=== PATIENT | female | born 1975 | race Caucasian/White ===

== ENCOUNTER 2016-09-30 04:15 | Emergency (ER) | payer OTHER ==
[~2016-09-30] VITALS: Ht 177.8 cm; Wt 90.9 kg
[~2016-09-30 04:15] MED LIST: ASCO1500 PO; FOLI-49 PO; GUAI120L41 PO; HYDR-906 PO; IBUP-1542 PO; OMEP40CA6 PO; PREN-21 PO; SODI75SP NASAL
[2016-09-30 04:18] VITALS: Ht 177.8 cm; Wt 90.9 kg
[2016-09-30] MEDS ORDERED: IBUPROFEN 800 MG TAB PO ONE (07:00)
--- NOTE | 2016-09-30 08:39 | RADRPT ---
PROCEDURE: XR Cervical Spine. CLINICAL INDICATION: Neck pain. Status post fall. TECHNIQUE: AP, lateral, and open-mouth odontoid views of the cervical spine were performed. The im ages were reviewed on a PACS workstation. COMPARISON: 04/22/2016 FINDINGS: The cervical spine is mildly straightened without evidence of fractures or subluxations. Vertebral body and disk heights appear within normal limits. No acute fractures or subluxations. Odontoid bas e and lateral masses are aligned. The prevertebral soft tissues are normal. No radiopaque foreign b odies are identified. IMPRESSION: 1. Unremarkable cervical spine x-rays series. RPTAT: VV .Charly Dover MD, MD Date Time Electronically viewed and signed by .Charly Dover MD, on 09/30/2016 08:39 .L/
--- NOTE | 2016-09-30 08:47 | RADRPT ---
PROCEDURE: XR Knee. CLINICAL INDICATION: Left knee pain. Status post fall. TECHNIQUE: AP, lateral, sunrise, and oblique views of the left knee are available for review. COMPARISON: None available FINDINGS: The osseous structures, articular spaces, and surrounding soft tissues of the left knee are all unre markable. No acute fracture or dislocation is seen. No radiopaque foreign body is identified. Ali gnment is anatomic. No joint effusion is seen. IMPRESSION: 1. Unremarkable left knee x-ray series. 2. No acute fracture or dislocation is seen. RPTAT: VV .Charly Dover MD, MD Date Time Electronically viewed and signed by .Charly Dover MD, MD on 09/30/2016 08:46 .L/
--- NOTE | 2016-09-30 08:50 | RADRPT ---
PROCEDURE: XR Lumbar Spine. CLINICAL INDICATION: Low back pain. Status post fall TECHNIQUE: AP, lateral, and lateral lumbosacral junction views of the lumbar spine are available f or review COMPARISON: 04/22/2016 FINDINGS: The normal lumbar lordosis is preserved. No acute fracture or compression is seen. The vertebral bod y heights are all normal. There is moderate degenerative disk changes with narrowing and small osteo phytes at the L4-5 and L5-S1 levels. Facet arthrosis also seen at these levels. The remainder of t he disk levels appear normal.. On the frontal view, there is normal alignment. Paraspinous soft tiss ues are grossly unremarkable. Sacroiliac joints are intact. IMPRESSION: 1. Moderate degenerative disk and facet joint changes at the L4-5 L5-S1 level. 2. No acute fracture or compression. RPTAT: VV .Charly Dover MD, Date Time Electronically viewed and signed by .Charly Dover MD, on 09/30/2016 08:50 .L/
--- NOTE | 2016-09-30 08:51 | RADRPT ---
PROCEDURE: XR Sacrum and Coccyx. CLINICAL INDICATION: Pain TECHNIQUE: AP and lateral views of the sacrum and coccyx were performed. COMPARISON: No prior studies are available for comparison. FINDINGS: There is normal sacral and coccygeal mineralization and alignment. No fracture or subluxation is see n. The sacroiliac joints appear normal. The soft tissues are unremarkable. The coccygeal elements ar e intact and in normal alignment. No fracture or dislocation is seen. IMPRESSION: 1. Unremarkable x-ray examination of the sacrum and coccyx. RPTAT: VV .Charly Dover MD, Date Time Electronically viewed and signed by .Charly Dover MD, on 09/30/2016 08:51 .L/
[2016-09-30] MEDS ORDERED: IBUP800T25 PO (09:12)
[2016-09-30] MEDS ORDERED: CYCL-319 PO (09:19)
[2016-09-30 09:29] VITALS: BP 122/73; PULSE 61; RESP 18; TEMP 97.8
--- NOTE | 2016-09-30 15:47 | ERD ---
ER Documentation Chief Complaint Date/Time DATE: 09/30/16 TIME: 15:38 Chief Complaint FALL 2 DAYS AGO, C/O GENERALIZED BODY PAIN. MOTRIN INEFFECTIVE HPI 41-year-old female complaining of back pain 2 days. Patient stated that she fell down a flight of stairs 2 days ago, and landed on her back. She is having burning pain since a fall in her lumbar region. Patient also reports pain in her neck, left shoulder, and left knee. She is able to ambulate without difficulty, and able to move her arm without pain. Denies hitting her head in the fall. Denies radiation of pain. Denies numbness and tingling in the extremities. Denies saddle paresthesia. Denies bowel bladder dysfunction. ROS All systems reviewed and are negative except as per history of present illness. Medications Home Meds Active Scripts Cyclobenzaprine Hcl* (Cyclobenzaprine Hcl*) 10 Mg Tablet, 10 MG PO TID Y for MUSCLE SPASMS, #15 TAB Prov:CHELSEA HEWITT NP 09/30/16 Ibuprofen* (Motrin*) 800 Mg Tab, 800 MG PO Q8 Y for PAIN AND OR ELEVATED TEMP, # 30 TAB Prov:CHELSEA HEWITT NP 09/30/16 Ibuprofen* (Motrin*) 600 Mg Tab, 600 MG PO Q6, #20 TAB Prov:LATESHA OLSEN MD 04/22/16 Hydrocodone/Acetaminophen (Agar 5-325 Tablet) 1 Each Tablet, 1 TAB PO Q6H Y for PAIN, #15 TAB Prov:LATESHA OLSEN MD 04/22/16 Guaifenesin/Codeine Phosphate (Codeine-Guaifen 10-100 mg/5 ml) 120 Ml Liquid, 120 ML PO Q4 for COUGH for 10 Days Prov:JAYLEN SUTTON NP 07/12/15 Sodium Chloride/Sod Bicarb (Nasa Mist Saline Clarion) 75 Ml Clarion, 2 SPRAYS NASAL BID, #1 BOTTLE Prov:JAYLEN SUTTON NP 07/12/15 Reported Medications Omeprazole* (Omeprazole*) 40 Mg Capsule.dr, 40 MG PO DAILY 10/05/13 Ascorbic Acid* (Vitamin C*) 1,500 Mg Tablet.sa, 1500 MG PO DAILY 10/05/13 Folic Acid* (Folic Acid*) 1 Mg Tablet, 1 MG PO DAILY 10/05/13 Vit/Fe Fum/Ap/Fa ( 19 Tablet) 1 Tab Tablet, 1 TAB PO DAILY 10/05/13 Allergies Allergies: Coded Allergies: No Known Allergy (Unverified , 04/22/16) PMhx/Soc Medical and Surgical Hx: pt denies Medical Hx, pt denies Surgical Hx History of Surgery: Yes (c/section x1) Anesthesia Reaction: No Hx Neurological Disorder: No Hx Respiratory Disorders: Yes (asthma) Hx Cardiac Disorders: No Hx Psychiatric Problems: No Hx Miscellaneous Medical Probl: Yes ( 4 PARA 0) Hx Alcohol Use: No Hx Substance Use: No Hx Tobacco Use: No Smoking Status: Never smoker Physical Exam Vitals Vital Signs Date Time Temp Pulse Resp B/P Pulse Ox O2 Delivery O2 Flow Rate FiO2 09/30/16 09:29 97.8 61 18 122/73 99 Room Air 09/30/16 04:18 97.0 72 18 115/70 99 Physical Exam General impression: Well-developed, well-nourished. Alert, oriented, in no acute distress Head: Normocephalic, atraumatic. Eyes: PERRL, EOM normal. Conjunctiva not injected. Neck: Supple, midline tenderness at C6 nontender. Left sternocleidomastoid spasm noted. Respiration: Normal respiratory effort. Lungs clear to auscultate bilaterally. No wheezes, rales or rhonchi. Cardiovascular: Regular rate and rhythm. No murmurs or extra heart sounds. Abdomen: Abdomen normal to inspection. Nontender. No masses or organomegaly. Bowel sounds normal. Back: Normal to inspection. Midline tenderness midline tenderness from L4 down to the coccyx. Right paraspinal lumbar muscle spasm noted. No CVA tenderness. Extremities: Bilateral upper extremities normal to inspection, nontender. ROM normal. Left knee tender in the joint line both medially and laterally. Normal range of motion of the left knee. Neurovascularly intact. Neuro: Mental status normal, speech normal. BURR BENCH HAND II-XII intact. Normal sensation and strength in all 4 extremities. No focal weakness noted. No saddle paresthesia. Skin: Normal turgor. No rash or lesions. Psych: Normal mood and affect. Results 24 hrs Current Medications Medications (Trade) Dose Ordered Sig/Gary Route PRN Reason Start Time Stop Time Status Last Admin Dose Admin Ibuprofen (Motrin) 800 mg ONCE ONCE PO 09/30/16 07:00 09/30/16 07:01 DC 09/30/16 06:51 PROCEDURE: XR Cervical Spine. CLINICAL INDICATION: Neck pain. Status post fall. TECHNIQUE: AP, lateral, and open-mouth odontoid views of the cervical spine were performed. The images were reviewed on a PACS workstation. COMPARISON: 04/22/2016 FINDINGS: The cervical spine is mildly straightened without evidence of fractures or subluxations. Vertebral body and disk heights appear within normal limits. No acute fractures or subluxations. Odontoid base and lateral masses are aligned. The prevertebral soft tissues are normal. No radiopaque foreign bodies are identified. IMPRESSION: 1. Unremarkable cervical spine x-rays series. RPTAT: VV .Charly Dover MD, Date Time Electronically viewed and signed by .Charly Dover MD, on 09/30/2016 08:39 .L/ CC: CHELSEA HEWITT NP PROCEDURE: XR Lumbar Spine. CLINICAL INDICATION: Low back pain. Status post fall TECHNIQUE: AP, lateral, and lateral lumbosacral junction views of the lumbar spine are available for review COMPARISON: 04/22/2016 FINDINGS: The normal lumbar lordosis is preserved. No acute fracture or compression is seen. The vertebral body heights are all normal. There is moderate degenerative disk changes with narrowing and small osteophytes at the L4-5 and L5-S1 levels. Facet arthrosis also seen at these levels. The remainder of the disk levels appear normal.. On the frontal view, there is normal alignment. Paraspinous soft tissues are grossly unremarkable. Sacroiliac joints are intact. IMPRESSION: 1. Moderate degenerative disk and facet joint changes at the L4-5 L5-S1 level. 2. No acute fracture or compression. RPTAT: VV .Charly Dover MD, MD Date Time Electronically viewed and signed by .Charly Dover MD, MD on 09/30/2016 08:50 .L/ CC: CHELSEA HEWITT [employer] PROCEDURE: XR Sacrum and Coccyx. CLINICAL INDICATION: Pain TECHNIQUE: AP and lateral views of the sacrum and coccyx were performed. COMPARISON: No prior studies are available for comparison. FINDINGS: There is normal sacral and coccygeal mineralization and alignment. No fracture or subluxation is seen. The sacroiliac joints appear normal. The soft tissues are unremarkable. The coccygeal elements are intact and in normal alignment. No fracture or dislocation is seen. IMPRESSION: 1. Unremarkable x-ray examination of the sacrum and coccyx. RPTAT: VV .Charly Dover MD, MD Date Time Electronically viewed and signed by .Charly Dover MD, MD on 09/30/2016 08:51 .L/ CC: CHELSEA HEWITT [employer] PROCEDURE: XR Knee. CLINICAL INDICATION: Left knee pain. Status post fall. TECHNIQUE: AP, lateral, sunrise, and oblique views of the left knee are available for review. COMPARISON: None available FINDINGS: The osseous structures, articular spaces, and surrounding soft tissues of the left knee are all unremarkable. No acute fracture or dislocation is seen. No radiopaque foreign body is identified. Alignment is anatomic. No joint effusion is seen. IMPRESSION: 1. Unremarkable left knee x-ray series. 2. No acute fracture or dislocation is seen. RPTAT: VV .Charly Dover MD, MD Date Time Electronically viewed and signed by .Charly Dover MD, MD on 09/30/2016 08:46 .L/ CC: CHELSEA HEWITT. [employer] Procedures/MDM Well-appearing 41-year-old female complaining of pain in her neck, left shoulder , lower back, and left knee after falling 2 days ago. X-ray of C-spine, lumbar spine, sacrum and coccyx are normal except for degenerative disc disease noted in L4-L5 and L5-S1 levels. X-ray of the left knee is also normal. Patient has complete normal exam of the left shoulder, no imaging was obtained. Patient is back pain likely due to muscle spasm secondary to the fall. Low suspicion for cauda equina syndrome, spinal fracture, subluxation, spinal epidural abscess. Patient will be given prescription ibuprofen and Flexeril, and patient is advised to follow-up with PCP. Patient appears well, stable for discharge and outpatient management. Medical decision making shared with patient and family. Education provided to patient and family. Patient and family expressed understanding of the plan. Medications on discharge: Flexeril, ibuprofen. Follow-up: Primary care provider in 2-3 days or return to ED if worse. Departure Diagnosis: Primary Impression: Back pain Additional Impressions: Neck pain Knee pain, left Condition: Good Patient Instructions: Back Pain (Acute Or Chronic) Referrals: [facility] YOU HAVE RECEIVED A MEDICAL SCREENING EXAM AND THE RESULTS INDICATE THAT YOU DO NOT HAVE A CONDITION THAT REQUIRES URGENT TREATMENT IN THE EMERGENCY DEPARTMENT. FURTHER EVALUATION AND TREATMENT OF YOUR CONDITION CAN WAIT UNTIL YOU ARE SEEN IN YOUR DOCTORS OFFICE WITHIN THE NEXT 1-2 DAYS. IT IS YOUR RESPONSIBILITY TO MAKE AN APPOINTMENT FOR FOLOW-UP CARE. IF YOU HAVE A PRIMARY DOCTOR --you should call your primary doctor and schedule an appointment IF YOU DO NOT HAVE A PRIMARY DOCTOR YOU CAN CALL OUR PHYSICIAN REFERRAL HOTLINE AT IF YOU CAN NOT AFFORD TO SEE A PHYSICIAN YOU CAN CHOSE FROM THE FOLLOWING [facility] [address] [facility] [address] [facility] [address] [facility] [address] [facility] [address]. [facility]. [address] Additional Instructions: Call your primary care doctor TOMORROW for an appointment during the next 2-3 days.See the doctor sooner or return here if your condition worsens before your appointment time. CHELSEA HEWITT NP Sep 30, 2016 15:47
== END 2016-09-30 09:20 | disposition home or self-care (01) ==
LOC: FTE 04:15
DX: S39.92XA Unspecified injury of lower back, initial encounter (principal); S19.9XXA Unspecified injury of neck, initial encounter; S89.92XA Unspecified injury of left lower leg, initial encounter; J45.909 Unspecified asthma, uncomplicated; W10.9XXA Fall (on) (from) unspecified stairs and steps, initial encounter; Y92.9 Unspecified place or not applicable
CPT/HCPCS: 72040; 72100; 72220; 73564; Z7502; Z7610